=== PATIENT | female | born 1945 | race Two or more races ===

== ENCOUNTER 2025-03-04 09:28 | Outpatient (RCR) | payer MEDICAID, SELFPAY ==
--- NOTE | 2025-03-04 09:49 | PTNOTE_ITS ---
PT OP Initial Eval Patient Information Outpatient Physical Therapy Treatment Date: 03/04/25 Visit Reasons: ABNORMALITIES OF GAIT AND MOBILITY Medical Diagnosis: Gait Abnormalities and Mobility (R26.9) Treatment Dx #1: BLE Weakness Treatment Dx #2: Balance Deficits Start of Care: 03/04/25 Date of Onset: 6 months ago Smoking Status Smoking Status: Never smoker Initial Assessment Subjective: Pt is a 79 y/o female reports of BLE weakness and decrease balance ~ 6 months ago. Pt further reports of leg pain L>R leading to difficulty with ADLs. Pt has limitation with feeding her animals, walking, standing, chores, self care, cooking, cleaning, and performing recreational activities. Objective: BLE AROM: all motions are WFL BLE PROM: all motions are WFL except IR Hip MMTs: grossly 3+/5 Sit-Stand Test 8 reps Sharpen Romber sec Assessment: Pt demonstrate BLE weakness with decrease balance leading to difficulty with ADLs. Pt will benefit from physical therapy to increase mobility, strength, and work on balance Short Term and [facility] Goals 1) Increase BLE MMTs grossly to 4/5 in 6 wks to be able to walk more than 30 mins 2) Increase sit to stand reps to 10 in 6 wks to improve BLE endurance 3) Increase sharpen romberg to 30 sec in 6 wks to be able to perform self care activities 4) Increase BLE AROM WNL in 6 wks to be able to perform recreational activities 5) Indep with HEP Treatment Plan 1) Manual Therapy 2) Therapeutic Activities 3) Therapeutic Exercises 4) Balance Training 5) Gait Training Frequency and Duration: 2 x wk for 6 wks Certification Dates: 03/04/25 to 06/04/25 Procedure Charges OP PT Eval Mod Complex 30 minutes: Yes
== END 2025-03-16 23:59 | disposition home or self-care (01) ==
LOC: CPTX 09:28
PROVIDERS: PCP Physician Assistant; Referring Provider Physician Assistant; Visit Provider Physician Assistant
DX: M79.605 Pain in left leg (principal); M79.604 Pain in right leg; R53.1 Weakness; R26.89 Other abnormalities of gait and mobility
CPT/HCPCS: 97162

== ENCOUNTER 2025-04-16 10:30 | Outpatient (RCR) | payer MEDICAID, SELFPAY ==
--- NOTE | 2025-04-06 13:53 | PT.ODAYNRPT ---
PT Outpatient Daily Note OP Daily Note Outpatient Physical Therapy Treatment Date: 04/06/25 Visit Reasons: abnormality of gait Subjective: Pt's legs hurt. Pt still has pain and limitation with walking. Objective: Please see flow chart for list of ther ex performed Assessment: attempted sci fit without success due to BLE pain and refusal to continue the bike. Pt instructed on seated exercises with good tolerance; require frequent cues to correct exercises Plan: Continue with PT Length of Time (minutes) of Treatment: 30 Minutes Procedure Charges Therapeutic Exercise 30 minutes: Yes
--- NOTE | 2025-04-08 10:31 | PT.ODAYNRPT ---
PT Outpatient Daily Note OP Daily Note Outpatient Physical Therapy Treatment Date: 04/08/25 Visit Reasons: abnormality of gait Subjective: No new complaints. Objective: Please see flow sheet for ther ex list. Assessment: Interventions given alternating sitting and standing to maximize pt participation. Plan: Continue with POc. Length of Time (minutes) of Treatment: 30 Minutes Procedure Charges Therapeutic Exercise 30 minutes: Yes
--- NOTE | 2025-04-16 11:29 | PT.ODAYNRPT ---
PT Outpatient Daily Note OP Daily Note Outpatient Physical Therapy Treatment Date: 04/16/25 Visit Reasons: abnormality of gait Subjective: Pt's balance is a little better. Pt denies of any recent falls. Pt has seen provider lately but not much information given to her regarding her health. Pt also notice a spot on her nose that has not been healing for a few weeks. Objective: Please see flow chart for list of ther ex performed Assessment: tolerate exercises today. cues to increase gastroc activation with calf raise through available ROM. Noted a healing scab on her nose and advised patient to follow up with provider if not further healing is indicated; patient gave verbal understanding and consent. Plan: Continue with PT Length of Time (minutes) of Treatment: 30 Minutes Procedure Charges Therapeutic Exercise 30 minutes: Yes
== END 2025-04-16 23:59 | disposition home or self-care (01) ==
LOC: CPTX 10:30
PROVIDERS: PCP Physician Assistant; Referring Provider Physician Assistant; Visit Provider Physician Assistant
DX: M79.605 Pain in left leg (principal); M79.604 Pain in right leg; R26.89 Other abnormalities of gait and mobility; R53.1 Weakness; R26.2 Difficulty in walking, not elsewhere classified
CPT/HCPCS: 97110

== ENCOUNTER 2025-05-14 11:30 | Outpatient (RCR) | payer MEDICAID, SELFPAY ==
--- NOTE | 2025-04-21 15:06 | PT.ODAYNRPT ---
PT Outpatient Daily Note OP Daily Note Outpatient Physical Therapy Treatment Date: 04/21/25 Visit Reasons: Abnormality and gait Subjective: Pt's legs are feeling stronger. Pt mentioned she's walking longer with less fatigue Objective: Please see flow chart for list of ther ex perfomed Assessment: frequent cues to correct knee curls and hip abduction exercises to decrease compensatory movement from the back. Plan: Continue with PT Length of Time (minutes) of Treatment: 30 Minutes Procedure Charges Therapeutic Exercise 30 minutes: Yes
--- NOTE | 2025-04-23 13:29 | PT.ODAYNRPT ---
PT Outpatient Daily Note OP Daily Note Outpatient Physical Therapy Treatment Date: 04/23/25 Visit Reasons: Abnormality and gait Subjective: No new complaints. Objective: Please see flow sheet for ther ex list. Assessment: Pt requires verbal cues and instruction to stay on tasks, pt compliant but requires reminders. Plan: Continue with POC. Length of Time (minutes) of Treatment: 30 Minutes Procedure Charges Therapeutic Exercise 30 minutes: Yes
--- NOTE | 2025-04-28 12:00 | PT.ODAYNRPT ---
PT Outpatient Daily Note OP Daily Note Outpatient Physical Therapy Treatment Date: 04/28/25 Visit Reasons: Abnormality and gait Subjective: Pt's doing okay. Pt does not have any new concerns to report. Objective: Please see flow chart for list of ther ex performed Assessment: added heel toe walking exercise; frequent cues required to keep eyes up and keep stride length short. Pt unable to perform exercise with good form without use of one hand. Plan: Continue with PT Length of Time (minutes) of Treatment: 30 Minutes Procedure Charges Therapeutic Exercise 30 minutes: Yes
--- NOTE | 2025-04-30 15:17 | PT.ODAYNRPT ---
PT Outpatient Daily Note OP Daily Note Outpatient Physical Therapy Treatment Date: 04/30/25 Visit Reasons: Abnormality and gait Subjective: No new complaints. Objective: Please see flow sheet for ther ex list. Assessment: Added hip 3 way standing, pt required verbal and tactile cue to perform with desired technique. Plan: Continue with POC. Length of Time (minutes) of Treatment: 30 Minutes Procedure Charges Therapeutic Exercise 30 minutes: Yes
--- NOTE | 2025-05-05 12:39 | PT.ODAYNRPT ---
PT Outpatient Daily Note OP Daily Note Outpatient Physical Therapy Treatment Date: 05/05/25 Visit Reasons: Abnormality and gait Subjective: Pt's feeling okay. No new concerns to report. Objective: Sit-Stand Test: 11 reps Assessment: patient met sit to stand goal. Pt is progressing with overall LE endurance and conditioning. Pt had difficulty on sci fit due to LE fatigue and understanding the use more BLE vs BUE Plan: Continue with PT Length of Time (minutes) of Treatment: 30 Minutes Procedure Charges Therapeutic Exercise 30 minutes: Yes
--- NOTE | 2025-05-14 11:48 | PT.ODAYNRPT ---
PT Outpatient Daily Note OP Daily Note Outpatient Physical Therapy Treatment Date: 05/14/25 Visit Reasons: Abnormality and gait Subjective: Pt was down for a few days due to feeling sick. Pt is feeling better today. Objective: Please see flow chart for list of ther ex performed Assessment: cues given to correct fwd lunge form to increase knee flexion with loading. Added more resistance and weight to exercise program with good tolerance Plan: Continue with PT Length of Time (minutes) of Treatment: 30 Minutes Procedure Charges Therapeutic Exercise 30 minutes: Yes
== END 2025-05-17 23:59 | disposition home or self-care (01) ==
LOC: CPTX 11:30
PROVIDERS: PCP Physician Assistant; Referring Provider Physician Assistant; Visit Provider Physician Assistant
DX: R53.1 Weakness (principal); R26.2 Difficulty in walking, not elsewhere classified; M79.605 Pain in left leg; M79.604 Pain in right leg; R26.89 Other abnormalities of gait and mobility
CPT/HCPCS: 97110

== ENCOUNTER 2025-05-27 13:30 | Outpatient (RCR) | payer MEDICAID, SELFPAY ==
--- NOTE | 2025-05-19 14:31 | PT.ODAYNRPT ---
PT Outpatient Daily Note OP Daily Note Outpatient Physical Therapy Treatment Date: 05/19/25 Visit Reasons: abnormality and gait Subjective: No complaints. Objective: Please see flow sheet for ther ex list. Assessment: Interventions given alternating sitting and standing to maximize pt participation. Plan: Continue with POC. Length of Time (minutes) of Treatment: 30 Minutes Procedure Charges Therapeutic Exercise 30 minutes: Yes
--- NOTE | 2025-05-27 13:48 | PTNOTE_ITS ---
PT OP Progress/Discharge Note Date of Service: 05/27/25 Progress Note/DC Note Progress Note/Discharge Note: DC Note Patient Information Visit Reasons: abnormality and gait Medical Diagnosis: R26.9 Treatment Dx #1: BLE Weakness Treatment Dx #2: Balance Deficits Service Continue Service or Discharge: Discharge Discharge Date: 05/27/25 Status Subjective: Pt's legs feel much stronger and better. Pt has been able to walk longer, stand, perform chores, and ADLs with less limitation. Pt continues to feed her animals on a daily basis. Pt denies of falls since starting physical therapy. Objective: BLE AROM: all motions are WNL Hip MMTs: grossly 4/5 Sit-Stand Test: 10 reps Sharpen Romber sec Assessment: Pt demonstrate functional BLE strength, mobility, and balance allowing her to resume ADLs with less limitaiton. Pt will no longer benefit from physical thera py due to plateau towards goals. Pt was instructed on HEP last session and educated to continue exercises to maintain overall mobility. Pt performed all exercises safely, thank you for your referrals. Plan: D/C home with HEP and follow up with MD NASSAR Procedure Charges Therapeutic Exercise 30 minutes: Yes
== END 2025-06-16 23:59 | disposition home or self-care (01) ==
LOC: CPTX 13:30
PROVIDERS: PCP Physician Assistant; Referring Provider Physician Assistant; Visit Provider Physician Assistant
DX: R53.1 Weakness (principal); R26.89 Other abnormalities of gait and mobility; R26.2 Difficulty in walking, not elsewhere classified
CPT/HCPCS: 97110

== ENCOUNTER → 2025-06-03 | Outpatient (CLI) | payer MEDICAID, SELFPAY ==
--- NOTE | 2025-06-03 14:30 | XR_ITS ---
Examination: Retroperitoneal ultrasound, complete Technique: Multiple high resolution grayscale images of the retroperitoneum obtained, including kidneys and bladder. Exam date and time:June 03, 2025 1434 hours INDICATIONS: Acute renal insufficiency on laboratory examination several months ago FINDINGS: Right kidney 9.6 cm cortex 1.5 cm Left kidney 6.2 cm cortex 0.7 cm Moderate renal parenchymal scar formation No hydronephrosis No bladder mass or bladder calculi Bladder prevoid volume 163 cc IMPRESSION: Small kidneys with renal cortical thinning Moderate renal parenchymal scar formation. No hydronephrosis
== END | disposition home or self-care (01) ==
PROVIDERS: PCP Physician Assistant; Referring Provider Internal Medicine; Visit Provider Internal Medicine
DX: N28.89 Other specified disorders of kidney and ureter (principal)
CPT/HCPCS: 76770

== ENCOUNTER → 2025-07-01 | Outpatient (CLI) | payer MEDICAID, SELFPAY ==
--- NOTE | 2025-07-01 13:30 | XR_ITS ---
EXAMINATION: Nuclear medicine renal flow and function, multiple studies Date and time: July 01, 2025, 1001 hours INDICATIONS: History small left kidney, renal sonogram 06/03/2025 bilateral small kidneys INDICATIONS: Low kidney function on laboratory examination this week, hypertension, diabetes Technique and findings: Intravenous administration 7.5 mCi Tc 99m MAG3 Flow and function curves generated No left kidney flow or function Normal right renal flow and function IMPRESSION: No left renal flow or function
== END | disposition home or self-care (01) ==
LOC: SNUC 13:29
PROVIDERS: PCP Physician Assistant; Referring Provider Internal Medicine; Visit Provider Internal Medicine
DX: N28.9 Disorder of kidney and ureter, unspecified (principal)
CPT/HCPCS: 78708; A9562